=== PATIENT | female | born 1960 | race Caucasian/White ===

== ENCOUNTER 2017-04-02 07:46 | Day surgery (SDC) | payer BC ==
[2017-03-28 15:24] VITALS: BMI 22.3
[2017-04-02] MEDS ORDERED: PROPOFOL 20 ML ONE ×2 (07:51)
[2017-04-02] MEDS ORDERED: LIDOCAINE HCL/PF 2% SDV 5ML VIAL ONE (08:18)
[2017-04-02 09:44] VITALS: TEMP 98
[2017-04-02 10:04] VITALS: BP 126/78; PULSE 69
== END 2017-04-02 10:09 | disposition home or self-care (01) ==
LOC: FASU-ENDO 07:46
PROVIDERS: ATTEND Internal Medicine Gastroenterology
PROC: 0DJD8ZZ Inspection of Lower Intestinal Tract, Via Natural or Artificial Opening Endoscopic (ICD-10-PCS; principal; 2017-04-02 09:09)
DX: Z12.11 Encounter for screening for malignant neoplasm of colon (principal); Z80.0 Family history of malignant neoplasm of digestive organs; K57.30 Diverticulosis of large intestine without perforation or abscess without bleeding

== ENCOUNTER 2022-01-25 07:34 | Day surgery (SDC) | payer BC ==
[2022-01-20 08:58] VITALS: BMI 22.3
[2022-01-25] MEDS ORDERED: PROPOFOL 120 ML ONE (07:52)
[2022-01-25] MEDS ORDERED: LIDOCAINE HCL/PF 2% SDV 5ML VIAL ONE (07:52)
[2022-01-25 08:53] VITALS: RESP 18; TEMP 97.3
[2022-01-25 09:11] VITALS: BP 114/60; PULSE 70
== END 2022-01-25 09:42 | disposition home or self-care (01) ==
LOC: FASU-ENDO 07:34
PROVIDERS: ATTEND Internal Medicine Gastroenterology
PROC: 0DJD8ZZ Inspection of Lower Intestinal Tract, Via Natural or Artificial Opening Endoscopic (ICD-10-PCS; principal; 2022-01-25 08:22)
DX: Z12.11 Encounter for screening for malignant neoplasm of colon (principal); Z80.0 Family history of malignant neoplasm of digestive organs; K57.30 Diverticulosis of large intestine without perforation or abscess without bleeding